=== PATIENT | male | born 1945 | race Caucasian/White ===

== ENCOUNTER → 2016-05-28 | Outpatient (CLI) | payer OTHER ==
--- NOTE | 2016-05-28 16:31 | DX ---
Chest, PA and Lateral. HISTORY: Cough and fever. Recently treated for pneumonia. COMPARISON: December 31, 2008. FINDINGS: Heart size is within normal limits. Mild peribronchial wall thickening is seen bilaterally. There is a mild nodular consolidation posteriorly in the right upper lobe. No evidence for pleural e ffusion or pneumothorax. Vascular calcifications in the aorta indicating atherosclerotic disease. IMPRESSION: Possible early or resolving pneumonia in the right upper lobe. As it has a slight nodular appearance recommend following to clear. Mild underlying bronchitis. Results discussed with Dr. Lc Oshea on 28 May 2016 at 1620 hours.
== END ==
LOC: CIMAGING 13:32
PROVIDERS: ATTEND Internal Medicine Nephrology
DX: R05 Cough (principal); R50.9 Fever, unspecified; Z94.0 Kidney transplant status
CPT/HCPCS: 71020-PO; 80069-PO; 81003-PO; 81015-PO; 83516-90; 85652-PO

== ENCOUNTER → 2016-06-10 | Outpatient (CLI) | payer OTHER ==
--- NOTE | 2016-06-10 08:36 | US ---
Renal Sonography With Color and Doppler Spectral Analysis Clinical History: 70-year-old male with a renal transplant presenting for follow up with history of a urinary tract infection and an enterococcus infection and prior pneumonia. ICD-10 Diagnostic Codes: N39.0 and B95.2. Technique: A curvilinear 5 MHz transducer was used to sonographically evaluate the right and left chavez al fossae, as well as the right pelvis, where the patient had a transplanted kidney (reportedly perfo rmed in 1999). Color and spectral Doppler analysis are also used. Comparison Study: Images associated with an ultrasound-guided core biopsy, dated January 10, 2009. Findings: There is severe atrophy of the [place] kidneys at the level of the renal fossae. The transpl anted right lower quadrant pelvic kidney is normal in size, shape, and echotexture. It measures 11.1 x 5.4 x 6.0 cm, and has a normal renal cortical thickness of 1.7 cm. There is no focal renal mass, pe rinephric fluid, or hydronephrosis. Evaluation of the segmental renal arteries reveals normal upstrok es with no pulsus parvus et tardus waveform and systolic ascension times of 59-66 ms. Resistive indic es are normal measuring 0.63-0.68. The main renal vein is patent with biphasic venous flow. The urina ry bladder is moderately distended, with a prevoid volume of 272 mL and a postvoid residual of 121 mL . A right ureteral jet is present. Impression: Normal appearance to the right pelvic renal transplant, and moderate postvoid urinary giuseppe dder residual.
--- NOTE | 2016-06-10 09:28 | DX ---
"Chest, PA and Lateral Upright Views, Three Views Total June 10, 2016 8:17 a.m. Clinical History: 70-year-old male with history of a cough and fever, presenting for follow up of a r ight perihilar infiltrate seen on May 28, 2016. ICD-10 Diagnostic Code: R05. Comparison Studies: Chest radiography dated May 28, 2016 and December 31, 2008. Findings: There has been no significant interval change in the appearance of the somewhat nodular rig ht perihilar infiltrate (which was not apparent on a study in 2008); follow-up CT imaging is therefor e recommended. There is some mild ipsilateral peribronchial thickening. There is also some persistent interstitial change at the left costophrenic angle. There is no pleural effusion. There is mild even tration of the anterior right hemidiaphragm. The cardiac and mediastinal silhouette is normal in size . There is some mural calcification of the aortic knob. The trachea is midline. The osseous structure s are age-appropriate. Impression: Persistent right perihilar nodular infiltrate, unchanged from May 28, 2016 with some localized interstitial disease at the left costophrenic angle. Recommendation: Chest CT imaging. A Follow-Up Required test result has been communicated via the [employer] | Critical Result syst em on 06/10/2016 9:21, Message ID [id number]."
== END ==
LOC: CIMAGING 07:43
PROVIDERS: ATTEND Internal Medicine Nephrology
DX: R91.1 Solitary pulmonary nodule (principal); J84.9 Interstitial pulmonary disease, unspecified; Z87.440 Personal history of urinary (tract) infections; Z94.0 Kidney transplant status; Z86.19 Personal history of other infectious and parasitic diseases
CPT/HCPCS: 71020-PO; 76770-PO

== ENCOUNTER → 2016-07-07 | Outpatient (CLI) | payer OTHER | LOC: CIMAGING 11:27 | PROVIDERS: ATTEND Family Medicine | DX: R91.8 Other nonspecific abnormal finding of lung field (principal); I25.10 Atherosclerotic heart disease of native coronary artery without angina pectoris; Z87.891 Personal history of nicotine dependence; Z94.0 Kidney transplant status | CPT/HCPCS: 71250-PO ==

== ENCOUNTER → 2016-09-03 | Outpatient (CLI) | payer OTHER ==
--- NOTE | 2016-09-07 13:20 | GPN ---
[f rep st] PROCEDURE NOTE DATE OF PROCEDURE: 09/06/2016 PROCEDURE: Bronchoscopy with endobronchial biopsies. CONSENT: Informed consent was obtained from the patient prior to the administration of anesthesia. The risks and benefits of both the procedure as well as conscious sedation were explained in detail , and he agreed to proceed. Conscious sedation was achieved using a total of 2 mg of IV Versed and 75 mcg of IV fentanyl. [facility]. PROCEDURE IN DETAIL: After application of topical lidocaine in the oropharynx, the bronchoscope was passed through the mouth, and normal-appearing epiglottis and vocal cords. The trachea itself was midline. There were no mucosal abnormalities or excess secretions. Attention was drawn to the righ t upper lobe, where a mass was suspected on CT scan. In the posterior right upper lobe, there was a n endobronchial lesion that I was unable to pass a variety of probes past. After instillation of to pical epinephrine, I attempted to brush the surface of this, followed by fine-needle aspirate. The fine-needle aspirate did not produce any material. Subsequently using biopsy forceps, I took multip le bites totaling approximately 6-7 without significant bleeding over this period of time. A post p rocedure fluoroscopic exam did not reveal evidence of pneumothorax. The patient tolerated the proce dure well without complications. /[id number]/MODL
== END ==
LOC: CIMAGING 09:18
PROVIDERS: ATTEND Internal Medicine Critical Care Medicine
PROC: 0BB48ZX Excision of Right Upper Lobe Bronchus, Via Natural or Artificial Opening Endoscopic, Diagnostic (ICD-10-PCS; principal; 2016-09-03)
DX: R91.1 Solitary pulmonary nodule (principal); J84.9 Interstitial pulmonary disease, unspecified; I25.10 Atherosclerotic heart disease of native coronary artery without angina pectoris
CPT/HCPCS: 71250-PO

== ENCOUNTER 2016-09-06 06:29 | Day surgery (SDC) | payer OTHER ==
[2016-09-06] MEDS ORDERED: LIDOCAINE 1% 2 ML INJ ID PRN (06:57)
[2016-09-06] MEDS ORDERED: NS 500 ML IV SCH (07:00)
[2016-09-06] MEDS ORDERED: MIDAZOLAM 2 MG/2 ML VIAL ONE (07:17)
[2016-09-06] MEDS ORDERED: ALBUTEROL 3 ML DEYVIAL ONE (07:17)
[2016-09-06] MEDS ORDERED: LIDOCAINE 2% JELLY 5 ML TUBE ONE (07:17)
[2016-09-06] MEDS ORDERED: LIDOCAINE 1% 30 ML SDV ONE (07:18)
[2016-09-06] MEDS ORDERED: fentaNYL 100 MCG/2 ML INJ ONE (07:18)
--- NOTE | 2016-09-07 13:20 | GPN ---
[f rep st] PROCEDURE NOTE Corrected report DATE OF PROCEDURE: 09/06/2016 PROCEDURE: Bronchoscopy with endobronchial biopsies. CONSENT: Informed consent was obtained from the patient prior to the administration of anesthesia. The risks and benefits of both the procedure as well as conscious sedation were explained in detail, and he agreed to proceed. Conscious sedation was achieved using a total of 2 mg of IV Versed and 75 mcg of IV fentanyl. The patient tolerated these well without complications. PROCEDURE IN DETAIL: After application of topical lidocaine in the oropharynx, the bronchoscope was passed through the mouth, and normal-appearing epiglottis and vocal cords. The trachea itself was midline. There were no mucosal abnormalities or excess secretions. Attention was drawn to the right upper lobe , where a mass was suspected on CT scan. In the posterior right upper lobe, there was an endobronchial lesion that I was unable to pass a variety of probes past. After instillation of topical epinephrine, I attempted to brush the surface of this, followed by fine-needle aspirate. The fine-needle aspirate did not produce any material. Subsequently using biopsy forceps, I took multiple bites totaling approximately 6-7 without significant bleeding over this period of time. A post procedure fluoroscopic exam did not reveal evidence of pneumothorax. The patient tolerated the procedure well without complications. /[id number]/MODL Adan acc#, 10/21/16, anastasiya WARE
== END 2016-09-06 09:15 | disposition home or self-care (01) ==
LOC: FSGY 06:29
PROVIDERS: ATTEND Internal Medicine Critical Care Medicine
PROC: 0BB48ZX Excision of Right Upper Lobe Bronchus, Via Natural or Artificial Opening Endoscopic, Diagnostic (ICD-10-PCS; principal; 2016-09-06 07:30)
DX: R91.1 Solitary pulmonary nodule (principal)
CPT/HCPCS: J2250; J3010

== ENCOUNTER → 2016-10-28 | Outpatient (CLI) | payer OTHER | LOC: BRMIMAGING 13:06 | PROVIDERS: ATTEND Internal Medicine Rheumatology | DX: Z13.820 Encounter for screening for osteoporosis (principal); M85.80 Other specified disorders of bone density and structure, unspecified site ==

== ENCOUNTER → 2016-11-29 | Outpatient (CLI) | payer OTHER | LOC: CIMAGING 09:16 | PROVIDERS: ATTEND Internal Medicine Critical Care Medicine | DX: R91.1 Solitary pulmonary nodule (principal); I25.10 Atherosclerotic heart disease of native coronary artery without angina pectoris | CPT/HCPCS: 71250-PO; 83516-90; 84550-PO ==

== ENCOUNTER → 2017-06-02 | Outpatient (CLI) | payer OTHER | LOC: CIMAGING 13:24 | PROVIDERS: ATTEND Internal Medicine Critical Care Medicine | DX: R91.1 Solitary pulmonary nodule (principal); M31.30 Wegener's granulomatosis without renal involvement; I25.10 Atherosclerotic heart disease of native coronary artery without angina pectoris | CPT/HCPCS: 71250-PO ==

== ENCOUNTER → 2018-08-08 | Outpatient (CLI) | payer OTHER | LOC: EMCIMAGING 13:10 | PROVIDERS: ATTEND Internal Medicine Critical Care Medicine | DX: R91.8 Other nonspecific abnormal finding of lung field (principal); M31.30 Wegener's granulomatosis without renal involvement; J84.9 Interstitial pulmonary disease, unspecified; I25.10 Atherosclerotic heart disease of native coronary artery without angina pectoris | CPT/HCPCS: 71250-PN ==